=== PATIENT | male | born 1960 | race Caucasian/White ===

== ENCOUNTER 2018-06-12 12:54 | Emergency (ER) | payer MEDICAID ==
[~2018-06-12] VITALS: Ht 193 cm; Wt 73.0 kg
[2018-06-12 13:47] VITALS: BP 156/105
== END 2018-06-12 13:52 | disposition home or self-care (01) ==
LOC: ER 12:55
DX: L85.3 Xerosis cutis (principal); F17.200 Nicotine dependence, unspecified, uncomplicated
CPT/HCPCS: 99281

== ENCOUNTER 2019-03-18 08:25 | Emergency (ER) | payer MEDICAID, OTHER ==
[~2019-03-18] VITALS: Ht 193 cm; Wt 78.6 kg
[2019-03-18] MEDS ORDERED: ipratropium/albuterol 3ml nebule NEB ONE (08:40)
[2019-03-18] MEDS ORDERED: predniSONE 20 mg tablet PO ONE (08:40)
--- NOTE | 2019-03-18 09:10 | NUR ---
pt came in for sob pt is up walking around room
[2019-03-18 09:24] VITALS: BP 121/81
[2019-03-18] MEDS ORDERED: GUAI120015 PO (09:32)
[2019-03-18] MEDS ORDERED: AMOX-419 PO (09:32)
[2019-03-18] MEDS ORDERED: ALBU6.7H9 INH (09:32)
[2019-03-18] MEDS ORDERED: PRED20TA PO (09:32)
== END 2019-03-18 09:41 | disposition home or self-care (01) ==
LOC: ER 08:25
DX: J20.9 Acute bronchitis, unspecified (principal); R00.0 Tachycardia, unspecified; F17.200 Nicotine dependence, unspecified, uncomplicated; Z71.6 Tobacco abuse counseling; Z79.2 Long term (current) use of antibiotics; Z79.899 Other long term (current) drug therapy
CPT/HCPCS: 71046; 93005; 94640; 94760; 99283; 99406; J7512